=== PATIENT | female | born 1985 | race Two or more races ===

== ENCOUNTER 2017-06-09 20:24 | Emergency (ER) | payer OTHER ==
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
[2017-06-09 20:37] VITALS: BP 127/68; PULSE 98; TEMP 97.8; BMI 22.9
[2017-06-09 21:04] LABS: URINE APPEARANCE CLOUDY; URINE BILIRUBIN NEGATIVE (NEGATIVE); URINE BLOOD 3+ (NEGATIVE); URINE COLOR YELLOW; URINE GLUCOSE (UA) NEGATIVE (NEGATIVE); URINE KETONE NEGATIVE (NEGATIVE); URINE LEUK ESTERASE NEGATIVE (NEGATIVE); URINE NITRITE NEGATIVE (NEGATIVE); URINE PROTEIN NEGATIVE (NEGATIVE); URINE UROBILINOGEN NEGATIVE mg/dL (0.2-1.0)
[2017-06-09] MEDS ORDERED: METHOCARBAMOL 500 MG TABLET PO ONE (21:24)
[2017-06-09] MEDS ORDERED: IBUPROFEN 600 MG TABLET (FP) PO STA (21:24)
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
[2017-06-09 21:45] LABS: URINE BACTERIA MANY /hpf (NONE SEEN); URINE MUCUS RARE; URINE RBC 5 /hpf (0-3); URINE WBC 12 /hpf (3-5)
[2017-06-09] MEDS ORDERED: METHOCARBAMOL 500 MG TABLET ONE (21:49)
[2017-06-09] MEDS ORDERED: IBUPROFEN 600 MG TABLET (FP) PO ONE (21:49)
[2017-06-09 22:31] LABS: URINE LEUK ESTERASE Negative (NEGATIVE)
== END 2017-06-09 21:40 | disposition home or self-care (01) ==
LOC: JER 20:24
DX: S13.4XXA Sprain of ligaments of cervical spine, initial encounter (principal); S39.012A Strain of muscle, fascia and tendon of lower back, initial encounter; V43.52XA Car driver injured in collision with other type car in traffic accident, initial encounter; Y92.488 Other paved roadways as the place of occurrence of the external cause; Y93.89 Activity, other specified; Y99.8 Other external cause status
CPT/HCPCS: 81003; 81015; 84703; 99282-25